=== PATIENT | male | born 2000 | race Caucasian/White ===

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

== ENCOUNTER 2023-12-28 11:13 | Emergency (ER) | payer OTHER ==
[2023-12-28] MEDS: BUFFERED LIDOCAINE 10 ML SYRINGE SUBQ STA (11:48)
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
[2023-12-28] MEDS ORDERED: BACITRACIN ZINC OINT 1 PACKET TOP STA (12:38)
[2023-12-28 12:50] VITALS: BP 133/81; O2SAT 99
== END 2023-12-28 12:43 | disposition home or self-care (01) ==
LOC: ED 11:13
DX: S61.213A Laceration without foreign body of left middle finger without damage to nail, initial encounter (principal); S61.012A Laceration without foreign body of left thumb without damage to nail, initial encounter; W26.8XXA Contact with other sharp object(s), not elsewhere classified, initial encounter; Y93.89 Activity, other specified
CPT/HCPCS: 12002; 99283

== ENCOUNTER 2024-01-19 12:49 | Outpatient (CLI) | payer OTHER ==
--- NOTE | 2024-01-19 13:22 | Sleep Patient Instructions ---
Sleep Center Visit Summary - Patient Visit Information Reason for Visit: Initial consult for evaluation of sleep disordered breathing and other sleep issues. - Patient Instructions Instructions Attached: Sleep Study, Sleep Study Home Monitor Additional Instructions: You will be completing a sleep study, either an in-lab polysomnography (PSG) or home sleep study (HST). You will follow-up in the sleep care office after the sleep study is completed to hear the results and talk about therapy, if needed. You will be called by our office staff to schedule this appointment, but you may contact us with any questions. - Clinic Information Contact: [facility] [address] [place] [id number] [email or web address] T: [phone]
--- NOTE | 2024-01-19 13:27 | SLEEP CARE CONSULTATION ---
Information from patient questionnaire entered by Sesar Mims. I have reviewed and concur with the information entered by Sesar Mims. This document represents the service I personally performed and the decisions made by me, Emily Kothari ARNP. History of Present Illness Service Date and Time: 01/19/2024 1249 Reason for Visit: New patient Chief Complaint: reports: Snoring, Excessive daytime sleepiness, Fatigue Date of Onset: ABOUT A YR Usual bedtime: 2200 Time it takes to fall asleep: 45MINS Snores at night: Yes Observed to quit breathing while asleep: No Number of times waking at night: 2 Reasons for waking at night: reports: Pain, Bathroom. denies: Choking, Snoring, Gasping for air Toss, Turn, or Twitch while sleeping: Yes Recalls having dreams: No Usually gets out of bed at: 0600; weekends 10-11 AM Feels refreshed in the morning: No Morning headache: Yes (5 days a week; last until about noon; come and go during the day) Sleepy or fatigued during the day: Yes Ever fallen asleep while driving: No Takes day naps: Yes (3 days a week for an hour) Dreams during day naps: No Prior sleep studies: No Additional HPI information: I had the pleasure of seeing FELISHA GALVEZ today regarding the possibility of him having a sleep disorder. His current complaints are excessive daytime sleepiness, fatigue and snoring. He says he sleeps about 7-8 hours but does not feel like he is sleeping at all. He will wake up at night and have a hard time getting back to sleep. He is tired when he gets up about 6 AM and is fatigued during the day. He is concerned about the fatigue. About 7 months ago he started having "really bad" headaches. He gets up with these often and is taking acetaminophen daily to combat the headaches. He says his father and a grandparent are treated with CPAP for sleep apnea. His plan is to move from [place] next month. - Parasomnia Symptoms Ever been unable to move upon waking from sleep: No Walks in sleep: No Talks in sleep: No Ever acted out dreams in sleep: No Ever felt weak in the knees when startled or emotional: Yes (occasional, has not fallen to ground) Bothered by creepy, crawly, restless sensations in legs: No Problems with memory or concentration: Yes (concentration) Subjective Initial [place] Sleepiness Scale score: 10 (01/19/24) Past Medical History Past Medical History: reports: Attention deficit, Other (CHRONIC HEADACHES) Social History The patient's occupation is a AM. Patient is Single and lives in . Have you smoked in the past 12 months: No Alcohol use: No Caffeine use: Yes Caffeine amount and frequency: A CUP EVERY COUPLE DAYS Family History Family history of sleep disordered breathing: Yes Family Hx Sleep Apnea: Father: Snoring, Sleep apnea - Treated, Grandparent: Sleep apnea - Treated Allergies and Home Medications Known drug allergies: No Drug allergies reviewed: Yes Home medication list reviewed: Yes (as listed) Allergy and home medication list: Allergies No Known Drug Allergies Allergy (Verified 01/17/24 10:38) Home Medications Medication Instructions Recorded Confirmed Last Taken Type Acetaminophen [Tylenol] See Rx Instructions .ROUTE .COMPLEX 01/19/24 01/19/24 Unknown History Calcium Carbonate [Calcium] See Rx Instructions .ROUTE .COMPLEX 01/19/24 01/19/24 Unknown History Cholecalciferol (Vitamin D3) See Rx Instructions .ROUTE .COMPLEX 01/19/24 01/19/24 Unknown History [Vitamin D3] Mecobalamin [B12 Active] See Rx Instructions .ROUTE .COMPLEX 01/19/24 01/19/24 Unknown History [place]-3/Dha/Epa/Fish Oil [Fish Oil See Rx Instructions .ROUTE .COMPLEX 01/19/24 01/19/24 Unknown History 1,000 mg Softgel] Review of Systems Weight gain over past 5 years: 25, intentional muscle "growth" Cardiovascular: denies: high blood pressure Gastrointestinal: denies: heartburn Neurological: denies: headaches Psychiatric: denies: anxiety, depression Ear/Nose/Throat: reports: tonsillectomy, wisdom teeth removed Endocrine: reports: sluggishness Musculoskeletal: reports: neck pain Physical Exam Vital signs obtained and entered by: SESAR Roberts MA Blood Pressure: 139/82 (RIGHT ARM) Cuff size: long Heart Rate: 76 O2 Saturation: 97 Height: 5 ft 9.5 in Weight: 232 lb 3.2 oz Body Mass Index: 33.7 BMI Classification: Obese Neck circumference: 16.5 Mouth and throat: narrow oropharynx Soft palate: long Hard palate: normal Uvula: normal Uvula visualization: 25% Mallampati Class III Tongue: normal in size Tonsils: absent bilaterally Neck: normal w/o lymphadenopathy or thyromegaly Heart: regular rate and rhythm Lungs: clear bilaterally Impression and Plan 1. Suspected Obstructive Sleep Apnea-Hypopnea Syndrome, as suggested by a history of loud and irregular snoring, morning headache, unrefreshed sleep, cognitive impairment, and excessive daytime sleepiness. Narrow oropharynx and obesity are common predisposing factors for obstructive sleep apnea-hypopnea syndrome. I recommend proceeding to polysomnography to confirm the diagnosis and to assess severity. If the patient has significant sleep disordered breathing, a manual CPAP titration study will also be performed to find the optimal treatment pressure. I informed the patient of what the sleep studies involve and after some discussion, obtained agreement to proceed. The path ophysiology of obstructive sleep apnea-hypopnea syndrome was discussed with the patient and health risks of cardiovascular and cerebrovascular disease if not treated. Risks of drowsy driving discussed in detail and patient advised to avoid long distance driving and to undercover agent at the first sign of drowsiness. Patient agreed to plan. * Schedule polysomnography * Avoid long distance driving or driving when feeling sleepy. * Avoid alcohol, sedative and muscle relaxant around bedtime. * Attempt to lose weight. * Review instructions provided by trained office staff on how to prepare for the sleep study. * Return for follow-up after sleep study completed. Counseling Topics: Weight loss health impact Plan: PSG/HST and followup Visit Type: In Office Time Spent with Patient (minutes): 30 Provider Statement: I spent 100% of the Face to Face Visit with the patient with greater than 50% spent counseling the patient and coordination of care.
[2024-01-19 13:34] VITALS: BP 139/82; O2SAT 97
== END 2024-01-19 12:50 | disposition home or self-care (01) ==
LOC: SC 12:49
PROVIDERS: ATTEND Nurse Practitioner Family
DX: R06.83 Snoring (principal); R51.9 Headache, unspecified; G47.8 Other sleep disorders; R41.89 Other symptoms and signs involving cognitive functions and awareness; G47.10 Hypersomnia, unspecified; E66.9 Obesity, unspecified; Z68.33 Body mass index [BMI] 33.0-33.9, adult
CPT/HCPCS: 99203; 99212

== ENCOUNTER 2024-02-07 13:20 | Outpatient (CLI) | payer OTHER | END 2024-02-07 13:21 | disposition home or self-care (01) | LOC: SC 13:20 | PROVIDERS: ATTEND Nurse Practitioner Family | DX: G47.33 Obstructive sleep apnea (adult) (pediatric) (principal); E66.9 Obesity, unspecified; Z68.34 Body mass index [BMI] 34.0-34.9, adult | CPT/HCPCS: 95806 ==

== ENCOUNTER 2024-02-17 15:18 | Outpatient (CLI) | payer OTHER ==
--- NOTE | 2024-02-17 15:38 | Sleep Patient Instructions ---
Sleep Center Visit Summary - Patient Visit Information Reason for Visit: Sleep study follow up - Patient Instructions Instructions Attached: Apnea Sleep Mouthpieces Additional Instructions: You have opted for an oral mandibular appliance to control your sleep apnea. A list of certified dentists in the area was provided for you to find a dentist to have your oral appliance made. Once you have the device, please call and make a follow up appointment. We need to see you after you have been using the appliance for a month. We will evaluate your response to therapy and order a follow up sleep study to check efficiency of treatment. Please call office to schedule a follow up appointment in the sleep care office your will use in new area, one month after obtaining new device. - Clinic Information Contact: [facility] [address] [place] [address] [email or web address] T: [phone]
[2024-02-17 15:42] VITALS: BP 158/78; O2SAT 98
--- NOTE | 2024-02-17 15:42 | SLEEP CARE CONSULTATION ---
Information from patient questionnaire entered by Samantha Mims. I have reviewed and concur with the information entered by Samantha Mims. This document represents the service I personally performed and the decisions made by , Emily Kothari ARNP. History of Present Illness Service Date and Time: 02/17/2024 151 Initial [place] Sleepiness Scale score: 10 (01/19/24) Current [place] Sleepiness Scale score: 12 (02/17/24) Additional HPI information: FELISHA GALVEZ returns for follow up and results of the recently performed home sleep study. The sleep study showed mild obstructive sleep apnea with an average AHI of 13.2 and vasquez oxygen saturation of 91%. I explained the pathophysiology behind obstructive sleep apnea. We then spent quite a bit of time discussing different treatment options. For mild obstructive sleep apnea, surgery and oral appliance are alternatives to nasal CPAP therapy but in moderate or severe cases, nasal CPAP is the most effective and reliable treatment. Because apnea is primarily in supine position, then positional management therapy could be effective. Methods discussed such as positioning with pillows, using a T-shirt with tennis balls in the back or commercial products that have a pillow format on back to prevent supine sleep. I reviewed the impact of weight changes on sleep apnea and strongly recommended losing weight. After some discussion, the patient opted to go with the oral appliance to control his sleep apnea. Patient does not drink alcohol. Patient was cautioned about risks of drowsy driving until sleepiness symptoms resolve. Patient denies drowsy driving. Sleep Study - Results Type of Sleep Study: Home sleep study (COMPLETED) Prior sleep studies: No Polysomnography/Home Sleep Study results: Physician Impression: The quality of the study is good. The length of the study is adequate (> 240 minutes). Please also see the tabulated and graphic data. 1. Obstructive Sleep Apnea-Hypopnea (ICD-10 G47.33), mild, with an AHI of 6.8/hr and vasquez SaO2 of 91%. During the study, the patient had 30 apneas (30 obstructive, 0 central, 0 mixed) and 16 hypopneas. The respiratory events occurred almost exclusively during supine sleep (supine AHI was 9.7 and non-supine, 2.61). Allergies and Home Medications Known drug allergies: No Drug allergies reviewed: Yes Home medication list reviewed: Yes (Acetaminophen, prn) Allergy and home medication list: Allergies No Known Drug Allergies Allergy (Verified 02/16/24 11:46) Review of Systems Review of systems same as previous: Yes (NO CHANGE) Physical Exam Vital signs obtained and entered by: SAMANTHA Roberts MA Blood Pressure: 158/78 (RIGHT ARM) Cuff size: regular Heart Rate: 100 O2 Saturation: 98 Height: 5 ft 9.5 in Weight: 232 lb 12.8 oz Body Mass Index: 33.8 BMI Classification: Obese Impression and Plan 1. Obstructive Sleep Apnea-Hypopnea Syndrome, mild, with lowest oxygen saturation of 91%. Obviously this is the cause of the patients symptoms of unrefreshed sleep, and excessive daytime sleepiness. Patient says he is moving back home to [place]. [facility] is [facility]. After some discussion, the patient opted to go with the oral appliance for his mild sleep apnea. A prescription was given to start process. Patient advised to check insurance to see if oral appliance is covered. I will have patient follow up with sleep provider in his new area to check effectiveness of treatment. If reduction of symptoms and comfortable with treatment, a polysomnography is usually ordered when using the oral appliance to check efficacy of treatment. 2. Obesity, unspecified. Currently patients BMI is 33.8. Obesity increases the risk of apnea, CPAP pressure requirements and overall health risks especially cardiovascular and diabetes. Thus patient is advised to lose weight. * Oral appliance. * Attempt to lose weight. * Avoid supine sleep * Return with sleep provider for followup sleep study to check efficacy of treatment. Counseling Topics: Weight loss health impact Prescriptions: Other (Oral appliance) Follow up with Sleep Care in: as needed (patient moving to [place]) Visit Type: In Office Time Spent with Patient (minutes): 21 Provider Statement: I spent 100% of the Face to Face Visit with the patient with greater than 50% spent counseling the patient and coordination of care.
== END 2024-02-17 15:19 | disposition home or self-care (01) ==
LOC: SC 15:18
PROVIDERS: ATTEND Nurse Practitioner Family
DX: G47.33 Obstructive sleep apnea (adult) (pediatric) (principal); E66.9 Obesity, unspecified; Z68.33 Body mass index [BMI] 33.0-33.9, adult
CPT/HCPCS: 99212; 99213